=== PATIENT | female | born 1995 ===

== ENCOUNTER 2021-05-22 16:59 | Emergency (ER) | payer SELFPAY ==
[~2021-05-22] VITALS: Wt 69.9 kg
[2021-05-22 17:26] VITALS: TEMP 99
[2021-05-22] MEDS ORDERED: DEPO-PROVER150 MG/M1 (17:31)
[2021-05-22] MEDS ORDERED: NAPROSYN500 MG PO (17:47)
[2021-05-22 18:32] VITALS: BP 111/73; PULSE 84
== END 2021-05-22 18:15 | disposition home or self-care (01) ==
LOC: COL.ER 16:59
DX: M26.601 Right temporomandibular joint disorder, unspecified (principal)